=== PATIENT | male | born 1940 | race Caucasian/White ===

== ENCOUNTER 2024-12-22 09:38 | Emergency (ER) | payer MEDICARE, BC, SELFPAY ==
--- OUTSIDE RECORDS SUMMARY | 2024-01-08 05:34 | XMS_ITS | Continuity of Care Document ---
Author Organization [facility] ic Address [address] [place] [address] Phone Care Team Providers Care Consultant Rn Name Role Phone Melvin Trinidad MD Unavailable Unavailable Allergies, Adverse Reactions, Alerts Substance Reaction Status Criticality Sulfa (Sulfonamide Antibiotics) redness in face Active No Information Medications Medication Instructions Dosage Effective Dates (start - stop) Status Comments TAMSULOSIN HCL (unknown strength) Not Available - Active FINASTERIDE (unknown strength) Not Available - Active OXYBUTYNIN CHLORIDE (unknown strength) Not Available - Active Zaditor 0.025 % (0.035 %) eye drops instill 1 drop by ophthalmic route into both eyes as needed for itching - Active NIACIN (unknown strength) Not Available - Active MAGNESIUM (unknown strength) Not Available - Active ALLER-FEX (unknown strength) Not Available - Active Procedures Procedure Date IOL Master Extracapsular Cataract Removal Extracapsular Cataract Removal IOL Master HOG SCRAPER Extended E&M HOG SCRAPER Extended E&M IOL Master Advance Directives Directive Yes / No Effective Date File Name No Information Encounters Encounter Description Practice Location Reason(s) For Visit Diagnoses Date Provider Providers Copied on Encounter [facility], [address] [place], [id number] , [place] tel: [phone] [facility] No Information [address] [place], [id number] , [place]. tel: [phone] [facility], [address] [place], [id number] , [place] tel: [phone] [facility] Age-related nuclear cataract, bilateral Oct-2 5-202 3 [address] [place], [id number] , [place]. tel: [phone] [facility], [address] [place], [id number] , [place] tel: [phone] [facility] No Information Oct-1 0-202 3 [address] [place], [id number] , [place]. tel: [phone] Referring Provider: Bill Mckeon, [address] [place], [address] . tel:[phone] [facility], [address] [place], [id number] , [place] tel: [phone] [facility] No Information Oct-0 4- 3 [address] [place], [id number] , [place]. tel: [phone] Referring Provider: Thee Torres, [address] [place] [address], [facility]. tel:[phone] [facility], [address] [place], [id number] , [place] tel: [phone] [facility] Age-related nuclear cataract of left eye Sep-2 0- 3 [address] [place], [id number] , [place]. tel: [phone] Referring Provider: Thee Torres, [address] [place] [address], [address]. tel:[phone] [facility], [address] [place], [id number] , [place] tel: [phone] [facility] glare (chief complaint) Age-related nuclear cataract, bilateralPosterior subcapsular polar age-related cataract, bilateralMeibomian gland dysfunction right eye, upper and lower eyelidsMeibomian gland dysfunction left eye, upper and lower eyelidsPinguecula, bilateralVitreous degeneration, bilateral Marisela Khan. [address], [place], [id number] , [place]. tel: [phone] Referring Provider: Jean Torres, [facility] [address] [place], [address]. tel:[phone] Family History Family Member Type Diagnosis Age At Onset No Information Payers Payer name Insurance type Covered constitution party ID Authormaliaa daniemolly(s) [employer] Medicare MB [id number] [facility] [id number] Social History Type Description Quantity Date Captured Comments Alcohol Use Details Unknown Caffeine Use Details Unknown Tobacco Use Status No Information Smoking Status No Information Sex Male Chief Complaint And Reason For Visit No Information Reason For Referral Reason For Referral No Information Plan Of Treatment Date Type Action Status Referral Referred To: Mallory Stallings [address] [place], [place], [phone] Ordered: Referrals: Family Medicine. Mallory Stallings. Consult ordered History Of Present Illness Encounter Date Complaint History Of Prese nt Illness glare The 82 year old patient presents for evaluation of glare. Dr. Jean Torres requests eval. Pt. states VA OD>OS gradually decreasing for the past month. Patient will not drive to and from [place] when visiting daughter due to bright glare from oncoming headlights and poor vision OD>OS. Problems reading small print on television OD>OS. No eye pain or discomfort OU. Current glasses worn for near and distance.Screening for COVID-19: Patient reports no close contact with known COVID-19. Patient denies any COVID-19 symptoms or recent travel. Functional Status Date Functional Assessmen t No Information Instructions Date Instruction Additional Infor mation Impression/Plan Related to Age-r elated nuclear cataract, bilateral Impression/Plan Related to Age-r elated nuclear cataract, bilateral Impression/Plan Related to Age-r elated nuclear cataract of left eye Impression/Plan Related to Vitre ous degeneration, bilateral Impression/Plan Related to Pingu ecula, bilateral Impression/Plan Related to Meibo breonna gland dysfunction left eye, upper and lower eyelids Impression/Plan Related to Meibo breonna gland dysfunction right eye, upper and lower eyelids Impression/Plan Related to Poste rior subcapsular polar age-related cataract, bilateral Impression/Plan Related to Age-r elated nuclear cataract, bilateral Assessments Type Assessment Date No Information Patient Care Teams Name Effective Dates (start - stop) Status Members No Information
[2024-12-22 09:40] VITALS: BP 131/91; PULSE 71; RESP 18; TEMP 36.6; O2SAT 96; BMI 30.7
--- NOTE | 2024-12-22 10:08 | ED.GENADULT ---
HPI - General Adult General Date Seen: 12/22/24 Chief complaint: Anxiety Stated complaint: Mental health Time Seen by Provider: 12/22/24 10:07 History of Present Illness HPI narrative: 84 yo M presenting to the ER today with his daughter with concern for anxiety. He had been living near [place], [place] for many years but this weekend moved from [place] to [place] to be close to his daughter. Since moving he has had significant anxiety. He is asking questions about where he is moving and were removed from. Is not currently on any meds for anxiety. History from the patient and supplemented large part but his daughter because of his short-term memory loss is that he had [facility] living [place] [facility] about the last 26 years after he retired. For the past few months he has been calling his family frequently complaining of anxiety. He has been too anxious to drive to [place]. He says that he just feels like he will forget where he was going it might not be able to find his way home. He has also been increasingly anxious in his [place] home and fearful of being there by himself. His daughters had been having discussions about this and they decided, as a family, that he needed to move from his [place] home to be closer to 1 of his daughters. One daughter is in [place], [place] [facility] [place] [facility]. Another doctors and [employer], but there are not many resources there. His 3rd daughter lives here in [place] I felt like this might be a good fit for him. They moved him to [facility] this weekend. Since arriving the apartment he has been having escalating anxiety, poor appetite, panic attacks. His daughter brought him here to the ER today hoping that they can get assistance with his anxiety. He is not able to tell me what past medical history has. It sounds like he is not currently on any prescription meds at all. His daughter says he used to be on some. The patient says he thinks his daughter, whose name may have been ?Mallory? told him that he should stop all of his meds. Unclear how long he has been off meds. Since he just moved to [place] they do not have any primary care doctor. Knowing that he was struggling, his daughter brought him here to the ER. She was not sure where else to go. Related Data Previous Rx's ?Medication ?Instructions ?Recorded quetiapine 25 mg tablet See Rx Instructions .Route 12/22/24 .COMPLEX #30 tabs Allergies Allergy/AdvReac Type Severity Reaction Status Date / Time Sulfa (Sulfonamide Allergy Intermediate rash Verified 12/22/24 09:49 Antibiotics) [facility] Social History Smoking Status: Never smoker Non-prescribed substance use: denies use Exam Narrative: Exam Narrative: Constitutional: Appears well-developed and well-nourished. Alert. Conversant and able to discuss jovially things of the distant past. He is not able to remember events of yesterday of this morning. Overall he is. Non toxic. HENT: Head: Atraumatic. Nose: Nose normal. Mouth/Throat: Oral mucosa is clear and moist. no trismus. Pharynx normal. Tonsils symmetric. No tonsillar enlargement, erythema, or exudate. Wearing dentures and they are loose. Eyes: Conjunctivae normal. EOM normal. Pupils equal, round, and reactive to light. No scleral icterus. Neck: Normal range of motion. Neck supple. No tracheal deviation present. No JVD Cardiovascular: Normal rate, regular rhythm. Seems to be slowing down her spitting up with breathing or possibly throwing PVCs. Not definitely irregularly irregular. No gallop. No friction rub. No murmur heard. Symmetric radial artery pulses Pulmonary/Chest: Effort normal. No stridor. No respiratory distress. No wheezes. No rales. No rhonchi . No tenderness. Abdominal: Soft. No distension. No mass. No tenderness. No rebound. No guarding. Musculoskeletal: RUE: Normal range of motion. No tenderness. No deformity LUE: Normal range of motion. No tenderness. No deformity RLE: Normal range of motion. No edema. No tenderness. No deformity LLE: Normal range of motion. No edema. No tenderness. No deformity Neurological: Alert and oriented to person, place, and time. Normal strength. CN II-VII intact. No sensory deficit. GCS eye subscore is 4. GCS verbal subscore is 5. GCS motor subscore is 6. Normal coordination Skin: Skin is warm and dry. No rash noted. No pallor. Normal capillary refill. Psychiatric: Normal mood. Normal affect. Daughter endorses that he has significant anxiety, been having panic attacks, poor appetite, poor sleep. He is not able to care for himself in his current apartment. It sounds like he may been having increasing anxiety and probably developing dementia for the past few months but has not been formally diagnosed by a medical provider yet. It is unclear if he had even seen his doctor for this. Const: Vital Signs, click to edit/add: Vital Signs - 24 hr 12/22/24 09:40 Temperature 97.9 F Pulse Rate [Pulse Oximeter] 71 Respiratory Rate 18 Blood Pressure [Ri ght Upper Arm] 131/91 H Pulse Oximetry 96 Oxygen Delivery Me thod Room Air Course Vital Signs Vital signs: Initial Vital Signs Temperature 97.9 F 12/22/24 09:40 Temperature Source Temporal Artery Scan 12/22/24 09:40 Pulse Rate 71 12/22/24 09:40 Respiratory Rate 18 12/22/24 09:40 Blood Pressure 131/91 H 12/22/24 09:40 Blood Pressure Mean 104 12/22/24 09:40 Pulse Oximetry 96 12/22/24 09:40 Oxygen Delivery Method Room Air 12/22/24 09:40 Vital Signs Temperature 97.9 F 12/22/24 09:40 Pulse Rate 71 12/22/24 09:40 Respiratory Rate 18 12/22/24 09:40 Blood Pressure 131/91 H 12/22/24 09:40 Pulse Oximetry 96 12/22/24 09:40 Oxygen Delivery Method Room Air 12/22/24 09:40 Temperature 97.9 F 12/22/24 09:40 Pulse Rate 71 12/22/24 09:40 Respiratory Rate 18 12/22/24 09:40 Blood Pressure 131/91 H 12/22/24 09:40 Pulse Oximetry 96 12/22/24 09:40 Oxygen Delivery Method Room Air 12/22/24 09:40 Medications Administered Medications: Discontinued Medications Generic Name Dose Route Start Last Admin Trade Name Freq PRN Reason Stop Dose Admin Quetiapine Fumarate 25 mg 12/22/24 12:37 12/22/24 13:09 Quetiapine 25 Mg Tablet PO 12/22/24 12:38 25 mg ONCE ONE Administration Medical Decision Making MDM Narrative Medical decision making narrative: Very pleasant 84-year-old gentleman brought to the ER today this morning with his daughter with concern that he has had increasing anxiety for the past few months and now dramatically escalating anxiety since he moved from his long[place]term home near [facility] to live here in an apartment in [place] to be closer to his daughter. 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 Things have gotten worse now with the change in environment. Consider alternative metabolic or infectious causes for his mental status change. Laboratory workup is reassuring. No evidence for electrolyte disturbance, renal failure, thyroid disorder, UTI, infection, arrhythmia, KS causing his agitation. At this point we strongly suspect that he has previously unrecognized dementia with an exacerbation of that dementia because of his life change leading to significant anxiety. At this point he is cooperative with his daughter. He we had the patient evaluated by social Work. The patient, his daughter, social Work, and myself all agree that the patient is not safe to go home to his apartment where he has no supervision and no one to help him. He will need additional support. Tonight he is going to be able to stay with his daughter who can help support him. Have started the process of getting him admitted at the [facility]. It sounds like they do have a respite and with a bed available tomorrow. Daughter will be able to keep him safe tonight. To help manage anxiety we did make a consult with [facility] psychiatry, Dr. Crane. After discussing this patient's situation in detail she would recommend that we start the patient on quetiapine 25 mg in the morning and 50 mg at night. If he has excess sedation from the quetiapine it would be okay to reduce him to 12.5 mg in the morning daughter is willing to try this. Also discussed that this medication may be successful but he also may need medication changes or dose adjustments which will need to be done through primary care. We were able to get this patient an appointment with the primary care clinic, Dr. Meyers, in 8 days (earliest available). Daughter will follow-up for that appointment next Sunday. Precautions for return to the ER reviewed. Lab Data Labs: Lab Results 12/22/24 12/22/24 Range/Units 10:39 11:03 WBC 7.39 (4.50-11.00) K/uL RBC 4.84 (4.30-5.90) m/uL Hgb 15.5 (13.5-17.5) gm/dL Hct 46.5 (37.0-53.0) % MCV 96 (80-100) fL MCH 32 (26-34) pg MCHC 33 (32-36) gm/dL RDW Coeff of Rabia 12.8 (11.5-15.5) % Plt Count 240 (140-440) K/uL Neut % (Auto) 57.3 (42.0-72.0) % Lymph % (Auto) 33.6 (20-44) % [place] % (Auto) 6.9 (0.0-11.0) % Eos % (Auto) 1.5 (0.0-7.0) % Baso % (Auto) 0.7 (0.0-3.0) % Neut # (Auto) 4.24 (1.7-7.0) K/uL Lymph # (Auto) 2.48 (0.90-2.90) K/uL [place] # (Auto) 0.50 (0.00-0.90) K/UL Eos # (Auto) 0.11 (0.00-0.50) K/uL Baso # (Auto) 0.05 (0.00-0.30) K/uL Abs Immat Gran (auto) 0.00 (0.00-0.30) K/uL Imm/Tot Granulo (auto) 0.0 % Sodium 135 (135-149) mmol/L Potassium 4.5 (3.6-5.1) mmol/L Chloride 105 (96-114) mmol/L Carbon Dioxide 25 (20-32) mmol/L Anion Gap 5 L (7-15) mEq/L BUN 16 (7-30) mg/dL Creatinine 1.0 (0.5-1.5) mg/dL Estimated Creat Clear 59.61 Estimated GFR 75 ml/min Glucose 114 (60-115) mg/dL Calcium 8.7 (8.4-10.6) mg/dL Troponin I < 0.01 (0.01-0.04) ng/mL TSH 3.020 (0.270-4.200) uIU/mL Urine Color Yellow (Yellow) Urine Appearance Clear (Clear) Urine pH 7.5 (5.0-8.5) Ur Specific Lee 1.015 (1.000-1.030) Urine Protein Negative (Negative) Urine Glucose (UA) Negative (Negative) Urine Ketones Negative (Negative) Urine Blood Trace-intact A (Negative) Urine Nitrite Negative (Negative) Urine Bilirubin Negative (Negative) Urine Urobilinogen 0.2 (0.2-1.0) Ur Leukocyte Esterase Negative (Negative) Urine RBC 0-2 (0-2) Urine WBC 0-2 (0-5) Ur Squamous Epith Cells None (None-Few) Urine Bacteria None (None) ECG Data Attestation: I personally reviewed and interpreted this ECG as follows: Interpretation: Normal sinus rhythm with frequent premature atrial contraction Computer interpretation is atrial fibrillation but this is inaccurate. There are clearly P waves visible in the baseline Rate 63 ME interval 200 Left axis deviation. No ST segment elevation or depression QTC 414, QTC 423 Discharge Plan Discharge Patient Disposition: Home w/ Parent or Adult Condition: Guarded Instructions: Dementia (ED) Additional Instructions: As we discussed, please come back to the ER right away if you have any concerns especially worsening anxiety, agitation, panic attacks, or behavior outbursts. We are going to try you on a new medication (quetiapine) that you can use to help calm her nerves and anxiety. Starting dose will be 25 mg in the morning and 50 mg before bedtime. Quetiapine can cause dizziness and drowsiness. If you are noticing too much sedation, it is okay to reduce her dose from 25 mg in morning down to 12.5 mg (half a tablet). If you feel like your anxiety is not controlled by the quetiapine, please come back the doctor to be rechecked. Follow up appointment scheduled with Dr. Bartlett, on December 30 at 10:30 AM. Please bring insurance information to the appointment. To reschedule your primary care appointment you can call [phone] Please continue to work with the [place] [facility] to arrange short term, and then long-term, living situation in a memory care or assisted living Prescriptions: New quetiapine 25 mg tablet See Rx Instructions .ROUTE .COMPLEX Qty: 30 0RF Rx Instructions: 25 mg (one tablet) orally each morning and 50mg (two tablets) orally each evening before bedtime Follow Up/Referrals: Provider,Not a Local [Primary Care Provider, Family Practice] Stand Alone Forms: Work/School Release, JK-Groupth Info Instructions
[2024-12-22 10:47] LABS: Hematocrit* 46.5 % (37.0-53.0); Hemoglobin* 15.5 gm/dL (13.5-17.5); Immature Granulocytes Abs Auto 0.00 K/uL (0.00-0.30); Immature Granulocytes Pct Auto 0.0 %; Lymphocytes Absolute Auto 2.48 K/uL (0.90-2.90); Mean Corpuscular HGB Conc 33 gm/dL (32-36); Mean Corpuscular Hemoglobin 32 pg (26-34); Mean Corpuscular Volume 96 fL (80-100); RDW Coefficient of Variation % 12.8 % (11.5-15.5); Red Blood Count* 4.84 m/uL (4.30-5.90); White Blood Count* 7.39 K/uL (4.50-11.00)
[2024-12-22 10:50] LABS: Slide Review Reflex No
[2024-12-22 11:00] LABS: Chloride* 105 mmol/L (96-114); Potassium* 4.5 mmol/L (3.6-5.1); Sodium* 135 mmol/L (135-149)
[2024-12-22 11:03] LABS: Anion Gap 5 mEq/L (7-15); Blood Urea Nitrogen* 16 mg/dL (7-30); Carbon Dioxide* 25 mmol/L (20-32); Creatinine* 1.0 mg/dL (0.5-1.5); Est. Creatinine Clearance* 59.61; Estimated Glomerular Filt Rate 75 ml/min
[2024-12-22 11:04] LABS: Calcium* 8.7 mg/dL (8.4-10.6); Glucose* 114 mg/dL (60-115)
[2024-12-22 11:25] LABS: Appearance Urine Clear (Clear)
[2024-12-22 11:59] LABS: TSH With Reflex to FT4* 3.020 uIU/mL (0.270-4.200)
--- NOTE | 2024-12-22 12:04 | PC.SOCIAL ---
Social work: Met with pt's dtr Rhiannon in person who conference called in pt's other two dtrs to speak with director of social media marketing. All are in agreement pt can not return to his apartment alone where the family moved him this weekend, due to his anxiety and confusion. Provided dtr with written resources on placement options in the [place] including Memory Care, Assisted Living, longterm and Enhanced Assisted Living. Dtr states their first choice for placement would be the short term Enhanced Assisted Living at [facility]. Called and spoke with nurse, Xiomy [phone], shared they currently do not have a bed available but might have a bed tomorrow. Xiomy to contact dtr to discuss this option. Met again with dtr who is aware of possible placement tomorrow from home for pt, pending nursing evaluation by Xiomy at home. Dtr states pt can come home with her or that she could stay with pt in his apartment at discharge from the ED, if there is not a need for acute stay at the hospital. Dtr requested medical information be sent to Xiomy for evaluation for admit. Secure emailed information from this visit to Xiomy who will follolw up with dtr regarding placement at [facility] from home. Dtr is aware of how to contact this director of social media marketing if needed.
[2024-12-22] MEDS: QUETIAPINE 25 MG TABLET PO (13:09)
== END 2024-12-22 13:12 | disposition home or self-care (01) ==
PROVIDERS: Emergency Provider Emergency Medicine
DX: F41.9 Anxiety disorder, unspecified (principal); F03.90 Unspecified dementia, unspecified severity, without behavioral disturbance, psychotic disturbance, mood disturbance, and anxiety
CPT/HCPCS: 36415; 80048; 81001; 84443; 84484; 85025; 93005; 99284; Q3014; A9270